=== PATIENT | male | born 1985 | race Caucasian/White ===

== ENCOUNTER 2019-03-14 12:51 | Emergency (ER) | payer SELFPAY ==
[2019-03-14] MEDS ORDERED: Lidocaine 1% 20 ML MDV ONE (13:14)
[2019-03-14] MEDS ORDERED: Ketorolac Tromethamine 60 MG/2 ML VIAL ONE (13:16)
[2019-03-14] MEDS ORDERED: Adacel (T-DAP) 0.5 ML SYRINGE ONE (13:16)
[2019-03-14] MEDS ORDERED: Cephalexin 250 MG CAP ONE (13:16)
[2019-03-14] MEDS ORDERED: Bacitracin 1 PK ONE (13:16)
[2019-03-14] MEDS ORDERED: Mupirocin 2% Ointment 22 GM Tube ONE (13:17)
--- NOTE | 2019-03-14 13:55 | RAD ---
RADIOGRAPH CHEST AND RIGHT RIBS 4 VIEW: DATE: 03/14/2019 HISTORY: 33-year-old male with traumatic right rib pain. FINDINGS: The visualized lung stafford are clear. The cardiomediastinal silhouette and hilar shadows are normal. The lateral costophrenic angles are sharp. The osseous structures appear normal. There is no pneumothorax. IMPRESSION: Negative.
== END 2019-03-14 14:22 ==
LOC: MADERS 12:51 → EEVIPCON 12:51 → MADERS 14:22
DX: S91.115A Laceration without foreign body of left lesser toe(s) without damage to nail, initial encounter (principal); S61.207A Unspecified open wound of left little finger without damage to nail, initial encounter; S00.81XA Abrasion of other part of head, initial encounter; S40.812A Abrasion of left upper arm, initial encounter; S40.811A Abrasion of right upper arm, initial encounter; S20.319A Abrasion of unspecified front wall of thorax, initial encounter; S20.419A Abrasion of unspecified back wall of thorax, initial encounter; Z23 Encounter for immunization; F41.9 Anxiety disorder, unspecified; F32.9 Major depressive disorder, single episode, unspecified; X58.XXXA Exposure to other specified factors, initial encounter
CPT/HCPCS: 90471; 90715; 96372; J1885; J2001

== ENCOUNTER 2019-04-05 13:27 | Emergency (ER) | payer SELFPAY ==
[~2019-04-05 13:27] MED LIST: Sodium Chloride Irrig Solution 250 ML BOT ONE
--- NOTE | 2019-04-05 14:03 | RAD ---
XR Hand Lt 3 View STANDARD HISTORY: Injury left hand pain FINDINGS: The questionable fracture involving the radial aspect of the base of the middle phalanx of the fifth digit/little finger.
[2019-04-05] MEDS ORDERED: Lidocaine 1% 20 ML MDV ONE (14:14)
[2019-04-05] MEDS ORDERED: Triple Antibiotic Oint 1 GM Packet ONE (14:43)
== END 2019-04-05 14:50 ==
LOC: EEVIPCON 13:27 → EDBD 13:27 → MADERS 13:27
DX: S61.412A Laceration without foreign body of left hand, initial encounter (principal); F31.9 Bipolar disorder, unspecified; F90.9 Attention-deficit hyperactivity disorder, unspecified type; F41.9 Anxiety disorder, unspecified; W22.8XXA Striking against or struck by other objects, initial encounter
CPT/HCPCS: 12001; J2001